=== PATIENT | male | born 1995 | race African-American/Black ===

== ENCOUNTER 2016-10-14 12:32 | Emergency (ER) | payer MEDICAID ==
[~2016-10-14] VITALS: Ht 188 cm; Wt 67.0 kg
[2016-10-14 12:37] VITALS: BP 120/80
[2016-10-14] MEDS ORDERED: KETOROLAC 30MG/ML VIAL IV ONE (14:45)
[2016-10-14] MEDS ORDERED: SODIUM CHLORIDE 0.9% 1,000 ML IV ONE (14:45)
[2016-10-14 15:19] LABS: GLUCOSE URINE NEGATIVE (NEGATIVE); KETONES URINE 1+ (NEGATIVE); LEUKOCYTE ESTERASE URINE NEGATIVE (NEGATIVE); NITRITE URINE NEGATIVE (NEGATIVE); OCCULT BLOOD URINE 3+ (NEGATIVE); PH URINE 5.5 (4.5-8.0); PROTEIN URINE 1+ (NEGATIVE); SPECIFIC GRAVITY URINE 1.036 (1.005-1.030); UROBILINOGEN URINE 0.2 E.U./dL (0.2-1.0)
[2016-10-14 15:21] LABS: CLARITY URINE SL HAZY (CLEAR); COLOR URINE YELLOW (YELLOW)
== END 2016-10-14 17:41 | disposition home or self-care (01) ==
LOC: ER 14:28
DX: N20.0 Calculus of kidney (principal); F17.200 Nicotine dependence, unspecified, uncomplicated; F12.10 Cannabis abuse, uncomplicated; Z87.442 Personal history of urinary calculi; Z88.6 Allergy status to analgesic agent
CPT/HCPCS: 74000; 74176; 81001; 96361; 96374; 99285; J1885; J7030; Z7610

== ENCOUNTER 2017-10-29 18:40 | Emergency (ER) | payer MEDICAID ==
[~2017-10-29] VITALS: Ht 190.5 cm; Wt 70.0 kg
[2017-10-30 08:31] VITALS: BP 112/80
== END 2017-10-30 08:32 | disposition home or self-care (01) ==
LOC: ER 18:40
DX: M54.5 Low back pain (principal); F17.200 Nicotine dependence, unspecified, uncomplicated; Z87.828 Personal history of other (healed) physical injury and trauma; Z88.6 Allergy status to analgesic agent; V43.52XA Car driver injured in collision with other type car in traffic accident, initial encounter; Y93.89 Activity, other specified; Y92.488 Other paved roadways as the place of occurrence of the external cause
CPT/HCPCS: 72100; 99284